=== PATIENT | male | born 2000 | race Caucasian/White ===

== ENCOUNTER 2021-03-09 00:47 | Emergency (ER) | payer OTHER ==
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
--- NOTE | 2021-03-09 01:50 | CR ---
Indication: Right-sided chest and rib pain Technique: Chest 1 view Comparison: None Findings/Impression: Cardiovascular and mediastinum: Heart size and vasculature are normal in caliber and appearance. Lungs and pleural space: Lungs are clear. No sign of infiltrate or mass. No sign of pleural effusion. No pneumothorax. Bones and soft tissues: No acute findings. Dictated by Jeremy Reed MD @ Mar 09 2021 1:46AM Signed by Dr. Jeremy Reed @ Mar 09 2021 1:48AM
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
[2021-03-09 02:00] LABS: BLOOD UREA NITROGEN,BUN 16 mg/dL (7.0-18.0); CARBON DIOXIDE,CO2 29.2 mmol/L (21.0-32.0); CHLORIDE,CL 103 mmol/L (98-107); GLUCOSE RANDOM 101 mg/dL (74-106); SODIUM,NA 141 mmol/L (136-148)
[2021-03-09] MEDS ORDERED: Iopamidol 755 MG/ML 500 ML Multipack Bottle IVPUSH STA (02:17)
[2021-03-09] MEDS ORDERED: Acetaminophen/HYDROcodone 325-10 MG Tab PO ONE (02:44)
--- NOTE | 2021-03-09 03:41 | CT ---
INDICATION: Trauma, pain after hockey injury TECHNIQUE: Axial images were obtained from the thoracic inlet to the diaphragm. Reformats: Coronal and sagittal IV Contrast: 100 cc Isovue 370 COMPARISON: None. FINDINGS: Mediastinum: Thyroid gland is unremarkable. Thoracic aorta is normal in caliber. No enlarged mediastinal lymph nodes. Anterior mediastinal soft tissue density, likely residual thymus. Lungs and Pleural Space: Trace right pleural effusion. Indeterminate pulmonary nodule right lower lobe measuring 3 millimeters. In a low risk patient, no further follow-up is required and a high risk patient, follow-up chest CT recommended in 12 months. Chest wall: No masses. Bones: Nondisplaced right 8th and 9th rib fractures laterally. IMPRESSION: 1. Nondisplaced right 8th and 9th rib fractures laterally with trace right pleural effusion. No pneumothorax. Please note that all CT scans at this facility use dose modulation, iterative reconstruction, and/or weight-based dosing when appropriate to reduce radiation dose to as low as reasonably achievable. Dictated by Jeremy Reed MD @ Mar 09 2021 3:25AM Signed by Dr. Jeremy Reed @ Mar 09 2021 3:39AM
--- NOTE | 2021-03-09 03:43 | CT ---
INDICATION: Trauma, pain after hockey injury TECHNIQUE: Axial images were obtained from the diaphragm to the iliac crest. Reformats were obtained in the coronal and sagittal plane. IV Contrast: 100 cc Isovue 370 Oral Contrast: None COMPARISON: None. FINDINGS: Liver: Unremarkable. Normal in size and attenuation. No masses. Gallbladder and bile ducts: Unremarkable. No stones or inflammation. No biliary dilatation. Spleen: Unremarkable. Normal in size without mass. Pancreas: Unremarkable. No mass or inflammation. Adrenal glands: Unremarkable. No nodules. Kidneys: Unremarkable. No masses, stones, or hydronephrosis. Vasculature: Unremarkable. GI tract: Unremarkable. No dilated bowel or focal inflammation. Bones: Unremarkable for age. IMPRESSION: No evidence of acute traumatic injury to the abdomen. Please see chest CT for comments about the right-sided rib fractures and trace right pleural effusion. Please note that all CT scans at this facility use dose modulation, iterative reconstruction, and/or weight-based dosing when appropriate to reduce radiation dose to as low as reasonably achievable. Dictated by Jeremy Reed MD @ Mar 09 2021 3:25AM Signed by Dr. Jeremy Reed @ Mar 09 2021 3:42AM
== END 2021-03-09 02:55 | disposition home or self-care (01) ==
LOC: MW.ED 00:47
DX: S20.211A Contusion of right front wall of thorax, initial encounter (principal); S30.1XXA Contusion of abdominal wall, initial encounter; W50.0XXA Accidental hit or strike by another person, initial encounter; Y93.65 Activity, lacrosse and field hockey
CPT/HCPCS: 36415; 71045; 71260; 74160; 80053; 81003; 85025; 99284; A9270; Q9967; 99283

== ENCOUNTER 2022-07-21 00:24 | Emergency (ER) | payer OTHER ==
[2022-07-21] MEDS ORDERED: Diphtheria,Pertussis(Acell),Tetanus Vaccine 0.5 ML Syringe IM ONE (00:48)
[2022-07-21] MEDS ORDERED: Amoxicillin/Clavulanate K 875-125 MG Tab PO ONE (00:48)
[2022-07-21] MEDS ORDERED: Acetaminophen 325 MG Tab PO ONE (00:49)
[2022-07-21] MEDS ORDERED: Lidocaine/Epineph/Tetracaine 3 ML Syringe TOP ONE (00:49)
[2022-07-21] MEDS ORDERED: Ibuprofen 400 MG Tab PO ONE (00:49)
[2022-07-21] MEDS ORDERED: Bacitracin Oint 28.35 GM Tube TOP STA (01:08)
== END 2022-07-21 01:50 | disposition home or self-care (01) ==
LOC: MW.ED 00:24
DX: S61.210A Laceration without foreign body of right index finger without damage to nail, initial encounter (principal); Z79.899 Other long term (current) drug therapy; Z23 Encounter for immunization; W54.0XXA Bitten by dog, initial encounter
CPT/HCPCS: 12002; 73120; 90471; 90715; 99283; A9270

== ENCOUNTER 2022-09-18 00:44 | Emergency (ER) | payer OTHER | END 2022-09-18 02:50 | disposition home or self-care (01) | LOC: MW.ED 00:44 | DX: S60.141A Contusion of right ring finger with damage to nail, initial encounter (principal); W22.8XXA Striking against or struck by other objects, initial encounter | CPT/HCPCS: 11740; 99282; 99283 ==